=== PATIENT | male | born 1980 | race African-American/Black ===

== ENCOUNTER 2017-01-16 11:16 | Emergency (ER) | payer MEDICAID ==
[2017-01-16 11:28] VITALS: O2SAT 96
--- NOTE | 2017-01-16 11:58 | EDPHY ---
H & P Smoking Status: Never smoked Time Seen by Provider: 01/16/17 11:28 HPI/ROS: CHIEF COMPLAINT: Feeling suicidal HISTORY OF PRESENT ILLNESS: 36-year-old male presents to the emergency department by private vehicle feeling depressed and suicidal. The patient has a history of bipolar and is on Lamictal 100 mg daily. This was decreased just a few weeks ago from 200 mg daily which she has been on for years. He states that he received some news from his and became increasingly depressed and heart broken. States that over 1 week ago he drank a large amount of alcohol, took a handful of pills and tried to hang himself. He states "obviously it was not successful". He denies chest pain or difficulty breathing. Denies abdominal pain. He states that he did not sleep well last night. He did have breakfast today. No vomiting. He still continues to feel suicidal. REVIEW OF SYSTEMS: Constitutional: No fever, no chills. Eyes: No double or blurry vision. ENT: No sore throat. Respiratory: No cough, no shortness of breath. Cardiac: No chest pain. Gastrointestinal: No abdominal pain, vomiting or diarrhea. Genitourinary: No dysuria. Musculoskeletal: No neck or back pain. Skin: No rashes. Neurological: No headache. (Ashley Avendano) Past Medical/Surgical History: Bipolar (Ashley Avendano) Social History: (Ashley Avendano) Physical Exam: General Appearance: Alert, no distress. Eyes: Pupils equal and round. Extraocular motions are all intact. ENT: Mouth: Mucous membranes moist. Respiratory: No wheezing, rhonchi, or rales, lungs are clear to auscultation. Cardiovascular: Regular rate and rhythm. Gastrointestinal: Abdomen is soft and nontender, no masses, no rebound or guarding, bowel sounds normal. Neurological: Alert and oriented x 3, cranial nerves II through XII grossly intact Skin: Warm and dry, no rashes. Musculoskeletal: Nontender to palpate along the cervical, thoracic or lumbar spine. Neck is supple. Extremities: Full range of motion and no peripheral edema. Psychiatric: Patient is oriented X 3, there is no agitation. (Ashley Avendano) Constitutional: Initial Vital Signs Temperature (C) 36.9 C 01/16/17 11:20 Heart Rate 112 H 01/16/17 11:20 Respiratory Rate 20 01/16/17 11:20 Blood Pressure 119/75 01/16/17 11:20 O2 Sat (%) 96 01/16/17 11:20 O2 Delivery Mode Room Air Allergies/Adverse Reactions: No Known Allergies Allergy (Verified 07/26/12 08:46) Home Medications: Medication Instructions Recorded lamOTRIGine [LamICTAL] 150 mg PO 07/26/12 clonazePAM [klonoPIN (RX)] 1 mg PO 10/06/12 Adderall 10 MG (*) 01/16/17 Medical Decision Making ED Course/Re-evaluation: Patient was feeling suicidal upon arrival but he is no longer feeling suicidal. He has been psychiatrically evaluated and will be discharged with outpatient resources and a safety plan. (Rush Olson) Given his recent suicide attempt and ongoing depression, the patient was placed on a detainer. Once he is medically cleared he will be evaluated by mental health. (Ashley Avendano) Differential Diagnosis: Depression including functional and major depression, situational depression, medication side effect, drugs and alcohol abuse. (Ashley Avendano) - Data Points Laboratory Results: Laboratory Results 01/16/17 12:00 01/16/17 12:00 01/16/17 01/16/17 01/16/17 13:20 12:00 12:00 WBC 4.66 10^3/uL 10^3/uL (3.80-9.50) RBC 5.19 10^6/uL 10^6/uL (4.40-6.38) Hgb 16.0 g/dL g/dL (13.7-17.5) Hct 46.6 % % (40.0-51.0) MCV 89.8 fL fL (81.5-99.8) MCH 30.8 pg pg (27.9-34.1) MCHC 34.3 g/dL g/dL (32.4-36.7) RDW 14.1 % % (11.5-15.2) Plt Count 278 10^3/uL 10^3/uL (150-400) MPV 8.8 fL fL (8.7-11.7) Neut % (Auto) 60.6 % % (39.3-74.2) Lymph % (Auto) 27.5 % % (15.0-45.0) [place] % (Auto) 10.5 % % (4.5-13.0) Eos % (Auto) 0.4 % L % (0.6-7.6) Baso % (Auto) 0.6 % % (0.3-1.7) Nucleat RBC Rel Count 0.0 % % (0.0-0.2) Absolute Neuts (auto) 2.82 10^3/uL 10^3/uL (1.70-6.50) Absolute Lymphs (auto) 1.28 10^3/uL 10^3/uL (1.00-3.00) Absolute Monos (auto) 0.49 10^3/uL 10^3/uL (0.30-0.80) Absolute Eos (auto) 0.02 10^3/uL L 10^3/uL (0.03-0.40) Absolute Basos (auto) 0.03 10^3/uL 10^3/uL (0.02-0.10) Absolute Nucleated RBC 0.00 10^3/uL 10^3/uL (0-0.01) Immature Gran % 0.4 % % (0.0-1.1) Immature Gran # 0.02 10^3/uL 10^3/uL (0.00-0.10) Sodium 137 mEq/L mEq/L (134-144) Potassium 4.0 mEq/L mEq/L (3.5-5.2) Chloride 106 mEq/L mEq/L (97-110) Carbon Dioxide 22 mEq/l mEq/l (22-31) Anion Gap 9 mEq/L mEq/L (8-16) BUN 16 mg/dL mg/dL (7-23) Creatinine 1.3 mg/dL mg/dL (0.7-1.3) Estimated GFR > 60 Glucose 114 mg/dL H mg/dL (70-100) Calcium 10.2 mg/dL mg/dL (8.5-10.4) TSH 1.680 uIU/mL uIU/mL (0.465-4.680) Urine Opiates Screen NEGATIVE (NEGATIVE) Urine Barbiturates NEGATIVE (NEGATIVE) Ur Phencyclidine Scrn NEGATIVE (NEGATIVE) Ur Amphetamine Screen NEGATIVE (NEGATIVE) U Benzodiazepines Scrn NEGATIVE (NEGATIVE) Urine Cocaine Screen NEGATIVE (NEGATIVE) U Marijuana (THC) Screen NON-NEGATIVE H (NEGATIVE) Ethyl Alcohol < 10 mg/dL mg/dL (0-10) Departure - Departure Disposition: Home, Routine, Self-Care Clinical Impression: Suicidal ideation Condition: Good Instructions: Suicide Prevention for Adults (ED) Referrals: Almaz Schwarz PAC [Primary Care Provider] - As per Instructions [facility] [Outside] - As per Instructions
[2017-01-16 12:11] LABS: % IMMATURE GRANULYOCYTES 0.4 % (0.0-1.1); ABSOLUTE IMMATURE GRANULOCYTES 0.02 10^3/uL (0.00-0.10); ADD DIFF? NO; ADD MORPH? NO; ADD SCAN? NO; ATYPICAL LYMPHOCYTE FLAG 20 (0-99); FRAGMENT RBC FLAG 0 (0-99); HEMATOCRIT 46.6 % (40.0-51.0); LEFT SHIFT FLG 0 (0-99); LIPEMIA HEMOLYSIS FLAG 90 (0-99); MEAN CELL HEMOGLOBIN 30.8 pg (27.9-34.1); MEAN CELL HEMOGLOBIN CONCENTR. 34.3 g/dL (32.4-36.7); MEAN CELL VOLUME 89.8 fL (81.5-99.8); MEAN PLATELET VOLUME 8.8 fL (8.7-11.7); PLATELET CLUMPS FLAG 10 (0-99); PLATELET COUNT 278 10^3/uL (150-400); RED BLOOD CELL COUNT 5.19 10^6/uL (4.40-6.38); RED CELL DISTRIBUTION WIDTH 14.1 % (11.5-15.2)
[2017-01-16 12:36] LABS: ANION GAP 9 mEq/L (8-16); CALCIUM 10.2 mg/dL (8.5-10.4); CARBON DIOXIDE 22 mEq/l (22-31); CHLORIDE 106 mEq/L (97-110); CREATININE 1.3 mg/dL (0.7-1.3); ETHANOL SERUM < 10 mg/dL (0-10); GLOMERULAR FILTRATION RATE > 60; GLUCOSE 114 mg/dL (70-100); SODIUM 137 mEq/L (134-144)
[2017-01-16 16:30] VITALS: BP 116/68; PULSE 86; RESP 18; TEMP 98.2
== END 2017-01-16 16:30 | disposition home or self-care (01) ==
DX: R45.851 Suicidal ideations (principal)
CPT/HCPCS: 80305; G0480